=== PATIENT | male | born 1990 | race Caucasian/White ===

== ENCOUNTER 2018-04-18 07:56 | Emergency (ER) | payer OTHER, SELFPAY ==
[2018-04-18] MEDS ORDERED: Fluorescein Opthalmic Strip ONE ×2 (08:01→08:02)
[2018-04-18] MEDS ORDERED: Proparacaine 0.5% Opth 15 ML BOT ONE (08:46)
[2018-04-18] MEDS ORDERED: PHENYLEPHRINE HCL 2.5% EA EYE SCH (09:30)
[2018-04-18] MEDS ORDERED: PHENYLEPHRINE HCL 2.5% R EYE SCH (09:45)
== END 2018-04-18 09:41 | disposition home or self-care (01) ==
LOC: ERS 07:56
DX: S05.91XA Unspecified injury of right eye and orbit, initial encounter (principal); W29.2XXA Contact with other powered household machinery, initial encounter
CPT/HCPCS: 99284